=== PATIENT | male | born 1975 | race Caucasian/White ===

== ENCOUNTER 2019-05-21 18:23 | Emergency (ER) | payer MEDICAID ==
[~2019-05-21] VITALS: Ht 180.3 cm; Wt 102.5 kg
[2019-05-21] MEDS ORDERED: IBUP-2029 PO (18:32)
[2019-05-21] MEDS ORDERED: ASPI-1497 PO (18:32)
[2019-05-21 18:33] VITALS: BP 157/76
== END 2019-05-21 20:30 | disposition home or self-care (01) ==
LOC: ER 18:23
DX: G89.18 Other acute postprocedural pain (principal); M67.472 Ganglion, left ankle and foot
CPT/HCPCS: 99282; Z7610